=== PATIENT | male | born 1965 | race Caucasian/White ===

== ENCOUNTER 2017-01-07 22:38 | Emergency (ER) | payer OTHER ==
[~2017-01-07] VITALS: Ht 180.3 cm; Wt 122.5 kg
[2017-01-07 23:21] VITALS: BP 159/93
[2017-01-08] MEDS ORDERED: AMOX1TAB61 PO (00:05)
--- NOTE | 2017-01-08 00:07 | PHYS DOC ---
Past Medical History Past Medical History: GERD, IBS Additional Past Medical Histor: DDD Past Surgical History: Tonsillectomy Additional Past Surgical Histo: LEFT KNEE SX, LEFT SHOULDER SX Alcohol Use: Occasionally Drug Use: None Adult General Chief Complaint Chief Complaint: COUGH HPI HPI Patient is a 51 year old male resents to the emergency department stating that he has had a one-month history of cough and congestion with sinus pressure. He states he's been taking NyQuil and Mucinex to help with the drainage and discomfort. He states in the morning he does have a productive cough. He states however during the day he just has a regular cough. He states that he has coughed so much at one time. He had passed out after coughing so much. Patient states that he just returned from [place] at 10:00 tonight. He came straight to the emergency department to the symptoms lasting so long. He denies any current fevers or chills. Review of Systems Review of Systems Constitutional: Denies fever or chills [] Eyes: Denies change in visual acuity, redness, or eye pain [] HENT: nasal congestion denies sore throat [] Respiratory: cough and shortness of air Cardiovascular: No additional information not addressed in HPI [] GI: Denies abdominal pain, nausea, vomiting, bloody stools or diarrhea [] : Denies dysuria or hematuria [] Musculoskeletal: Denies back pain or joint pain [] Integument: Denies rash or skin lesions [] Neurologic: Denies headache, focal weakness or sensory changes [] Endocrine: Denies polyuria or polydipsia [] All other systems were reviewed and found to be within normal limits, except as documented in this note. Allergies Allergies Allergies Coded Allergies Type Severity Reaction Last Updated Verified No Known Drug Allergies 01/07/17 No Physical Exam Physical Exam Constitutional: Well developed, well nourished, no acute distress, non-toxic appearance. [] HENT: Normocephalic, atraumatic, bilateral external ears normal, oropharynx moist, no oral exudates, nose normal. Bilateral tympanic membranes appear to be normal. Patient with erythematous noted in the throat with postnasal drip noted. Eyes: PERRLA, EOMI, conjunctiva normal, no discharge. [] Neck: Normal range of motion, no tenderness, supple, no stridor. [] Cardiovascular:Heart rate regular rhythm, no murmur [] Lungs & Thorax: Bilateral breath sounds clear to auscultation [] Skin: Warm, dry, no erythema, no rash. [] Extremities: No tenderness, no cyanosis, no clubbing, ROM intact, no edema. [] Neurologic: Alert and oriented X 3, normal motor function, normal sensory function, no focal deficits noted. [] Psychologic: Affect normal, judgement normal, mood normal. [] Current Patient Data Vital Signs Vital Signs Date Time Temp Pulse Resp B/P (MAP) Pulse Ox O2 Delivery O2 Flow Rate FiO2 01/07/17 23:21 98.0 68 18 98 Room Air 98.0 EKG EKG [] Radiology/Procedures Radiology/Procedures [] Course & Med Decision Making Course & Med Decision Making Pertinent Labs and Imaging studies reviewed. (See chart for details) Spoke with patient in regards to placing him on antibiotics with recommendation for Mucinex DM and Sudafed chcc-dmi-selensd. Also recommended prednisone and an albuterol inhaler. Spoke with patient in regards to not performing a chest x- ray as he has been placed on Augmentin comfort pneumonias. Patient agrees with discharge instructions, treatment regimens and follow-up recommendations. Signs and symptoms return back to the emergency department has been provided. All questions and concerns have been answered. I've spoken with the patient and/or caregivers. I've explained the patient's condition, diagnosis and treatment plan based on information available to me at this time. I've answered the patient's and/or caregivers questions and addressed any concerns. The patient and/or caregivers have a good understanding the patient's diagnosis, condition and treatment plan as can be expected at this point. Vital signs have been stabilized. The patient's condition is stable for discharge from the emergency department. The patient will pursue further outpatient evaluation with her primary care provider or other designated consulting physician as outlined in the discharge instructions. Patient and/or caregivers are agreeable to this plan of care and follow-up instructions have been explained in detail. The patient and/or caregivers have received these instructions in written format and expressed understanding of these discharge instructions. The patient and her caregivers are aware that if any significant change in condition or worsening of symptoms should prompt him to immediately return to this of the closest emergency department. If an emergent department is not readily available I would encourage him to call 911. Lambert Disclaimer Lambert Disclaimer This electronic medical record was generated, in whole or in part, using a voice recognition dictation system. Departure Departure Impression: Primary Impression: Sinusitis Disposition: 01 HOME, SELF-CARE Condition: STABLE Referrals: UNKNOWN PCP NAME (PCP) Patient Instructions: Sinusitis, [id number] Additional Instructions: Activity as tolerated Tylenol or ibuprofen for fever chills or generalized body aches and discomfort. Sudafed and Mucinex DM as directed by manufacture [id number]. Antibiotics as prescribed. Drink plenty of fluids Follow-up with your care physician in the next 5-7 days. Return back to the emergency department as needed for signs and symptoms that become worse. Scripts Amoxicillin/Potassium Clav (AUGMENTIN 875-125 TABLET) 1 Each Tablet 1 TAB PO BID, #20 TAB Prov: DAIVD BRIGGS APRN 01/08/17 Problem Qualifiers Primary Impression: Sinusitis Sinusitis location: unspecified location Chronicity: unspecified Qualified Codes: J32.9 - Chronic sinusitis, unspecified DAVID BRIGGS PRIMARY HEALTH ORGANISATION MANAGER Jan 08, 2017 00:07
[2017-01-08] MEDS ORDERED: guaiFENesin DM 600/30MG 1 TAB TAB.ER.12H PO ONE (00:15)
[2017-01-08] MEDS ORDERED: PSEUDOEPHEDRINE ER 120 MG TABLET.ER. PO ONE (00:15)
[2017-01-08] MEDS ORDERED: AMOXICILLIN/K CLAV 875/125MG TABLET. PO ONE (00:15)
[2017-01-08] MEDS ORDERED: PRED20TA PO (00:19)
[2017-01-08] MEDS ORDERED: PROAIR HFA8.5 GM INH (00:20)
== END 2017-01-08 00:14 | disposition home or self-care (01) ==
LOC: ER 22:38
DX: J32.9 Chronic sinusitis, unspecified (principal); K21.9 Gastro-esophageal reflux disease without esophagitis; K58.9 Irritable bowel syndrome, unspecified
CPT/HCPCS: 99284

== ENCOUNTER 2018-04-15 22:58 | Emergency (ER) | payer OTHER ==
[~2018-04-15] VITALS: Ht 180.3 cm; Wt 127.0 kg
[~2018-04-15 22:58] MED LIST: ALBU2.5V8 INH; AMOX1TAB61 PO; PRED20TA PO
--- NOTE | 2018-04-15 23:12 | PHYS DOC ---
Past Medical History Past Medical History: GERD, IBS Additional Past Medical Histor: DDD Past Surgical History: Tonsillectomy Additional Past Surgical Histo: LEFT KNEE SX, LEFT SHOULDER SX Alcohol Use: Occasionally Drug Use: None Adult General Chief Complaint Chief Complaint: FLU SYMPTOM HPI HPI Patient is a 52-year-old male who presents with complaint of productive cough and purulent nasal drainage for the last week and a half. He denies any fever. He states that getting to the point now where he feels like he is not able to get adequate breath. He reports that he was initially having a lot of sinus pain and pressure especially in the maxillary sinuses but states that since they 've been draining his pain has been much less. He denies any nausea or vomiting. Patient states that coughing is worse in the cold air. Review of Systems Review of Systems Constitutional: Denies fever or chills [] HENT: Positive sinus congestion and purulent nasal drainage[] Respiratory: Positive productive cough without shortness of breath [] Cardiovascular: No additional information not addressed in HPI [] GI: Denies abdominal pain, nausea, vomiting or diarrhea [] Current Medications Current Medications Current Medications Medications (Trade) Dose Ordered Sig/Leanne Start Time Stop Time Status Last Admin Dose Admin Clonidine HCl (Catapres) 0.2 mg 1X ONCE 04/15/18 23:15 04/15/18 23:16 DC 04/15/18 23:15 0.2 MG Allergies Allergies Allergies Coded Allergies Type Severity Reaction Last Updated Verified No Known Drug Allergies 01/07/17 No Physical Exam Physical Exam Constitutional: Well developed, well nourished, no acute distress, non-toxic appearance. [] HENT: Normocephalic, atraumatic, bilateral external ears normal, oropharynx moist, no oral exudates, nose normal. [] Cardiovascular: Regular rate and rhythm[] Lungs & Thorax: Fine rhonchi are noted in the lung bases[] Extremities: No tenderness, no cyanosis, no clubbing, ROM intact, no edema. [] Neurologic: Alert and oriented X 3, no focal deficits noted. [] Current Patient Data Vital Signs Vital Signs Date Time Temp Pulse Resp B/P (MAP) Pulse Ox O2 Delivery O2 Flow Rate FiO2 04/15/18 23:15 70 223/106 04/15/18 23:00 98.1 20 97 Room Air 98.1 EKG EKG [] Radiology/Procedures Radiology/Procedures [] Impressions: PROCEDURE: CHEST PA & LATERAL EXAM: PA and Lateral Views of the Chest DATE: 04/15/2018 11:14 PM INDICATION: cough COMPARISON: No Prior FINDINGS: The heart is not enlarged. Mediastinal and hilar contours are normal. No focal parenchymal airspace opacity. Right upper lobe calcified granuloma. No pleural effusion or pneumothorax. IMPRESSION: 1. No radiographic evidence for acute cardiopulmonary process. Electronically signed by: Figueroa Hernandez MD (04/15/2018 11:44 PM) [facility] Course & Med Decision Making Course & Med Decision Making Pertinent Labs and Imaging studies reviewed. (See chart for details) [] Dragon Disclaimer Dragon Disclaimer This electronic medical record was generated, in whole or in part, using a voice recognition dictation system. Departure Departure Impression: Primary Impression: Acute bronchitis Disposition: 01 HOME, SELF-CARE Condition: STABLE Referrals: UNKNOWN PCP NAME (PCP) Patient Instructions: Acute Bronchitis Scripts Guaifenesin/Codeine Phosphate (CHERATUSSIN AC SYRUP) 118 Ml Liquid 5 ML PO PRN Q6HRS PRN for COUGH, #120 ML Prov: JIMMY MANDUJANO Jr. DO 04/16/18 Amoxicillin/Potassium Clav (AUGMENTIN 875-125 TABLET) 1 Each Tablet 1 TAB PO BID, #20 TAB Prov: JIMMY MANDUJANO Jr. DO 04/16/18 Problem Qualifiers Primary Impression: Acute bronchitis Bronchitis organism: unspecified organism Qualified Codes: J20.9 - Acute bronchitis, unspecified JIMMY MANDUJANO Jr. DO Apr 15, 2018 23:12
[2018-04-15] MEDS ORDERED: cloNIDine HCL 0.1 MG TABLET PO ONE (23:15)
--- NOTE | 2018-04-15 23:47 | RAD ---
EXAM: PA and Lateral Views of the Chest DATE: 04/15/2018 11:14 PM INDICATION: cough COMPARISON: No Prior FINDINGS: The heart is not enlarged. Mediastinal and hilar contours are normal. No focal parenchymal airspace opacity. Right upper lobe calcified granuloma. No pleural effusion or pneumothorax. IMPRESSION: 1. No radiographic evidence for acute cardiopulmonary process. Electronically signed by: Figueroa Hernandez MD (04/15/2018 11:44 PM) [id number]
[2018-04-16] MEDS ORDERED: AMOX1TAB61 PO (00:10)
[2018-04-16] MEDS ORDERED: GUAI118L20 PO (00:10)
[2018-04-16] MEDS ORDERED: AMOXICILLIN/K CLAV 875/125MG TABLET. PO ONE (00:15)
[2018-04-16 00:31] VITALS: BP 160/90
== END 2018-04-16 00:34 | disposition home or self-care (01) ==
LOC: ER 22:58
DX: J20.9 Acute bronchitis, unspecified (principal); K21.9 Gastro-esophageal reflux disease without esophagitis; Z90.89 Acquired absence of other organs
CPT/HCPCS: 71046; 99283

== ENCOUNTER 2019-02-06 08:50 | Emergency (ER) | payer OTHER ==
[~2019-02-06] VITALS: Ht 182.9 cm; Wt 129.3 kg
[~2019-02-06 08:50] MED LIST changes: +GUAI118L20 PO
[2019-02-06] MEDS ORDERED: hydrALAZINE 20 MG/ML VIAL. IVP ONE ×2 (09:15→11:00)
--- NOTE | 2019-02-06 09:32 | PHYS DOC ---
Past Medical History Past Medical History: GERD, IBS, Sinusitis, Other Additional Past Medical Histor: DDD Past Surgical History: Tonsillectomy, Other Additional Past Surgical Histo: LEFT KNEE/SHOULDER Alcohol Use: Occasionally Drug Use: None Adult General Chief Complaint Chief Complaint: HYPERTENSION HPI HPI Patient is a 53 year old male patient with history of IBS and degenerative joint disease who presents with complaint of high blood pressure. Patient states he has had nasal congestion and sinus pressure symptom and treated bdil-amf-[id number] medication without improvement and was seen at urgent care yesterday and had blood pressure of 170s over 110 and was advised to come to emergency room. Patient states he purchased a blood pressure machine and check his blood pressure last night and this morning dentist was 170s over 1:15 and decided to come to ER. Patient denies headache, blurred vision, chest pain, shortness of breath, focal neuro deficit, history of hypertension or family history of hypertension. Patient had blood pressure of 223/133 at arrival to ER. Review of Systems Review of Systems Constitutional: Denies fever or chills [] Eyes: Denies change in visual acuity, redness, or eye pain [] HENT: Reports nasal congestion and sinus pressure Respiratory: Denies cough or shortness of breath [] Cardiovascular: No additional information not addressed in HPI [] GI: Denies abdominal pain, nausea, vomiting, bloody stools or diarrhea [] : Denies dysuria or hematuria [] Musculoskeletal: Denies back pain or joint pain [] Integument: Denies rash or skin lesions [] Neurologic: Denies headache, focal weakness or sensory changes [] Endocrine: Denies polyuria or polydipsia [] All other systems were reviewed and found to be within normal limits, except as documented in this note. Current Medications Current Medications Current Medications Medications (Trade) Dose Ordered Sig/Leanne Start Time Stop Time Status Last Admin Dose Admin Hydralazine HCl (Apresoline Inj) 10 mg 1X ONCE 02/06/19 11:00 02/06/19 11:01 DC 02/06/19 11:01 10 MG Lisinopril (Prinivil) 20 mg 1X ONCE 02/06/19 11:30 02/06/19 11:33 DC 02/06/19 11:42 20 MG Allergies Allergies Allergies Coded Allergies Type Severity Reaction Last Updated Verified No Known Drug Allergies 01/07/17 No Physical Exam Physical Exam Constitutional: Well developed, well nourished, no distress, non-toxic appearance. [] HENT: Normocephalic, atraumatic. Eyes: PERRLA, EOMI, conjunctiva normal, no discharge. [] Neck: Normal range of motion, no tenderness, supple, no stridor. [] Cardiovascular:Heart rate regular rhythm, no murmur [] Lungs & Thorax: Bilateral breath sounds clear to auscultation [] Abdomen: Bowel sounds normal, soft, no tenderness, no masses, no pulsatile masses. [] Skin: Warm, dry, no erythema, no rash. [] Back: No tenderness, no CVA tenderness. [] Extremities: No tenderness, no cyanosis, no clubbing, ROM intact, no edema. [] Neurologic: Alert and oriented X 3, no focal deficits noted. [] Psychologic: Affect normal, judgement normal, mood normal. [] Current Patient Data Vital Signs Vital Signs Date Time Temp Pulse Resp B/P (MAP) Pulse Ox O2 Delivery O2 Flow Rate FiO2 02/06/19 11:42 83 205/107 02/06/19 11:41 18 98 Room Air 02/06/19 08:55 97.7 97.7 Lab Values Laboratory Tests Test 02/06/19 09:29 White Blood Count 6.6 x10^3/uL (4.0-11.0) Red Blood Count 5.16 x10^6/uL (4.30-5.70) Hemoglobin 15.8 g/dL (13.0-17.5) Hematocrit 45.2 % (39.0-53.0) Mean Corpuscular Volume 87 fL (79-100) Mean Corpuscular Hemoglobin 31 pg (25-35) Mean Corpuscular Hemoglobin Concent 35 g/dL (31-37) Red Cell Distribution Width 12.4 % (11.5-14.5) Platelet Count 296 x10^3/uL (140-400) Neutrophils (%) (Auto) 61 % (31-73) Lymphocytes (%) (Auto) 30 % (24-48) Monocytes (%) (Auto) 7 % (0-9) Eosinophils (%) (Auto) 2 % (0-3) Basophils (%) (Auto) 1 % (0-3) Neutrophils # (Auto) 4.0 x10^3/uL (1.8-7.7) Lymphocytes # (Auto) 2.0 x10^3/uL (1.0-4.8) Monocytes # (Auto) 0.5 x10^3/uL (0.0-1.1) Eosinophils # (Auto) 0.1 x10^3/uL (0.0-0.7) Basophils # (Auto) 0.1 x10^3/uL (0.0-0.2) Prothrombin Time 12.3 SEC (11.7-14.0) Prothrombin Time INR 0.9 (0.8-1.1) Sodium Level 140 mmol/L (136-145) Potassium Level 4.2 mmol/L (3.5-5.1) Chloride Level 104 mmol/L (98-107) Carbon Dioxide Level 26 mmol/L (21-32) Anion Gap 10 (6-14) Blood Urea Nitrogen 13 mg/dL (8-26) Creatinine 1.2 mg/dL (0.7-1.3) Estimated GFR (Cockcroft-Gault) 63.3 BUN/Creatinine Ratio 11 (6-20) Glucose Level 121 mg/dL (70-99) H Calcium Level 9.0 mg/dL (8.5-10.1) Magnesium Level 1.9 mg/dL (1.8-2.4) Total Bilirubin 0.4 mg/dL (0.2-1.0) Aspartate Amino Transferase (AST) 19 U/L (15-37) Alanine Aminotransferase (ALT) 26 U/L (16-63) Alkaline Phosphatase 46 U/L (46-116) Creatine Kinase 89 U/L (39-308) Troponin I Quantitative < 0.017 ng/mL (0.000-0.055) SX-Rot-K-Type Natriuretic Peptide 98 pg/mL (0-124) Total Protein 7.2 g/dL (6.4-8.2) Albumin 3.6 g/dL (3.4-5.0) Albumin/Globulin Ratio 1.0 (1.0-1.7) Laboratory Tests 02/06/19 09:29 Laboratory Tests 02/06/19 09:29 EKG EKG EKG interpreted by me. EKG at 0 924 showed normal sinus rhythm at rate of 66, left leung axis, normal DC and QT intervals, no acute ST and T-wave elevation. Radiology/Procedures Radiology/Procedures [][facility] [address] [place] [address] IMAGING REPORT Signed PATIENT: FLOWER THOMPSON ACCOUNT: [id number] : 1965 LOCATION: ER AGE: 53 SEX: M EXAM STATUS: PRE ER ORD. PHYSICIAN: MARISSA POTTS MD REASON: hypertension PROCEDURE: CHEST PA & LATERAL EXAM: Chest, 2 views. HISTORY: Hypertension. COMPARISON: 04/15/2018 FINDINGS: 2 views of the chest are obtained. There is no infiltrate, pleural effusion or pneumothorax. The heart is normal in size. There is a calcified granuloma within the right upper lobe. IMPRESSION: No acute pulmonary finding. Electronically signed by: Eri Deal MD (02/06/2019 9:48 AM) [facility] DICTATED and SIGNED BY: ERI DEAL MD DATE: 02/06/1948 Course & Med Decision Making Course & Med Decision Making Pertinent Labs and Imaging studies reviewed. (See chart for details) Evaluation of patient in ER showed 52-year-old male patient without history of hypertension presented to ER with blood pressure of blood and 200. Patient had blood pressure of 213/133 at arrival to ER and treated with hydralazine 10 mg IV 2 and blood pressure gradually decreased to 180s over 90s. Patient had unremarkable labs. Patient refused hospitalization and wanted to follow-up with primary care physician as outpatient. 20 Milligram of lisinopril by mouth was given in ER and lisinopril 10 mg daily was given. Patient was advised to recheck the blood pressure and follow up with primary care physician and return to ER as needed. Dragon Disclaimer Dragon Disclaimer This electronic medical record was generated, in whole or in part, using a voice recognition dictation system. Departure Departure Impression: Primary Impression: Accelerated hypertension Disposition: HOME, SELF-CARE (at 11:30) Condition: IMPROVED Referrals: UNKNOWN PCP NAME (PCP) Patient Instructions: Form - Blood Pressure Record Sheet, How to Take Your Blood Pressure, [id number], Hypertension, Managing Your High Blood Pressure Additional Instructions: Record her blood pressure Follow-up with your primary care physician in 2-3 days Return to ER if not getting better Thank you for visiting [facility]. We appreciate you trusting us with your care. If any additional problems come up don't hesitate to return to visit us. Please follow up with your primary care provider so they can plan additional care if needed and know about the problem that you had. If symptoms worsen come back to the Emergency Department. Any concerning symptoms that start such as chest pain, shortness of air, weakness or numbness on one side of the body, running high fevers or any other concerning symptoms return to the ER. Scripts Lisinopril (LISINOPRIL) 10 Mg Tablet 1 TAB PO DAILY, #30 TAB 0 Refills Prov: MARISSA POTTS MD 02/06/19 MARISSA POTTS MD Feb 06, 2019 09:32
[2019-02-06 09:46] LABS: BASO # 0.1 x10^3/uL (0.0-0.2); BASO % 1 % (0-3); EOS # 0.1 x10^3/uL (0.0-0.7); EOS % 2 % (0-3); HEMATOCRIT 45.2 % (39.0-53.0); HEMOGLOBIN 15.8 g/dL (13.0-17.5); LYMPH % 30 % (24-48); MEAN CORPUSCULAR HEMOGLOBIN 31 pg (25-35); MEAN CORPUSCULAR HGB CONC 35 g/dL (31-37); MEAN CORPUSCULAR VOLUME 87 fL (79-100); MONO # 0.5 x10^3/uL (0.0-1.1); MONO % 7 % (0-9); NEUT % 61 % (31-73); PLATELET COUNT 296 x10^3/uL (140-400); RED BLOOD COUNT 5.16 x10^6/uL (4.30-5.70); RED CELL DISTRIBUTION WIDTH 12.4 % (11.5-14.5); WHITE BLOOD COUNT 6.6 x10^3/uL (4.0-11.0)
--- NOTE | 2019-02-06 09:51 | RAD ---
EXAM: Chest, 2 views. HISTORY: Hypertension. COMPARISON: 04/15/2018 FINDINGS: 2 views of the chest are obtained. There is no infiltrate, pleural effusion or pneumothorax. The heart is normal in size. There is a calcified granuloma within the right upper lobe. IMPRESSION: No acute pulmonary finding. Electronically signed by: Eri Vigil MD (02/06/2019 9:48 AM) [facility]
[2019-02-06 09:52] LABS: CREATININE 1.2 mg/dL (0.7-1.3); GFR 63.3; POTASSIUM 4.2 mmol/L (3.5-5.1)
[2019-02-06 09:59] LABS: ALBUMIN 3.6 g/dL (3.4-5.0); MAGNESIUM 1.9 mg/dL (1.8-2.4); TOTAL BILIRUBIN 0.4 mg/dL (0.2-1.0); TOTAL PROTEIN 7.2 g/dL (6.4-8.2)
[2019-02-06 10:00] LABS: PROTHROMBIN TIME PATIENT 12.3 SEC (11.7-14.0)
--- NOTE | 2019-02-06 11:15 | EKG ---
[facility] [address] [place] [address] Test Date: 2019-02-06 Test Time: 09:24:04 Pat Name: FLOWER JUAREZLEVON Department: Room: Gender: [employer] Sales Representative: Lizzie : 1965 Requested By: MARISSA POTTS Order Number: [id number] Reading MD: Measurements Intervals [place] Rate: 66 P: 24 IA: 142 QRS: -9 QRSD: 88 T: 3 QT: 382 QTc: 402 Interpretive Statements SINUS RHYTHM LEFTWARD AXIS NO SPECIFIC ECG ABNORMALITIES RI6.01 No previous ECG available for comparison
[2019-02-06] MEDS ORDERED: LISINOPRIL 10 MG TABLET PO ONE (11:30)
[2019-02-06] MEDS ORDERED: LISI10TA2 PO (11:38)
[2019-02-06 11:42] VITALS: BP 205/107
== END 2019-02-06 11:53 | disposition home or self-care (01) ==
LOC: ER 08:50
DX: I10 Essential (primary) hypertension (principal); K21.9 Gastro-esophageal reflux disease without esophagitis; K58.9 Irritable bowel syndrome, unspecified
CPT/HCPCS: 36415; 71046; 80053; 82550; 83735; 83880; 84484; 85025; 85610; 93005; 96374; 96376; 99285; J0360

== ENCOUNTER 2019-02-07 21:28 | Emergency (ER) | payer OTHER ==
[~2019-02-07] VITALS: Ht 180.3 cm; Wt 129.3 kg
[~2019-02-07 21:28] MED LIST changes: +LISI10TA2 PO
--- NOTE | 2019-02-07 22:00 | PHYS DOC ---
Past Medical History Past Medical History: GERD, IBS, Sinusitis, Other Additional Past Medical Histor: DDD Past Surgical History: Tonsillectomy, Other Additional Past Surgical Histo: LEFT KNEE/SHOULDER Alcohol Use: Occasionally Drug Use: None Adult General Chief Complaint Chief Complaint: HEADACHE HPI HPI Patient is a 53-year-old male with a recent diagnosis of hypertension who is started on lisinopril. He is checked his blood pressure multiple times today and it's been in the 170/100 range and he is concerned. He also states he has a lit tle bit of a headache. He denies any lateralizing neurologic weakness. He states the headache is throbbing in nature. He denies any nausea or vomiting. Denies any neck pain. He does admit that he and his have both been very worried about the diagnosis of hypertension.[] Review of Systems Review of Systems Constitutional: Denies fever or chills [] Eyes: Denies change in visual acuity, redness, or eye pain [] HENT: Denies nasal congestion or sore throat [] Respiratory: Denies cough or shortness of breath [] Cardiovascular: No additional information not addressed in HPI [] GI: Denies abdominal pain, nausea, vomiting, bloody stools or diarrhea [] : Denies dysuria or hematuria [] Musculoskeletal: Denies back pain or joint pain [] Integument: Denies rash or skin lesions [] Neurologic: Per history of present illness[] Endocrine: Denies polyuria or polydipsia [] All other systems were reviewed and found to be within normal limits, except as documented in this note. Current Medications Current Medications Current Medications Medications (Trade) Dose Ordered Sig/Leanne Start Time Stop Time Status Last Admin Dose Admin Acetaminophen/ Butalbital/ Caffeine (Fioricet) 1 tab 1X ONCE 02/07/19 22:30 02/07/19 22:31 DC 02/07/19 22:06 1 TAB Allergies Allergies Allergies Coded Allergies Type Severity Reaction Last Updated Verified No Known Drug Allergies 01/07/17 No Physical Exam Physical Exam Constitutional: Well developed, well nourished, no acute distress, non-toxic appearance. [] HENT: Normocephalic, atraumatic, bilateral external ears normal, oropharynx moist, no oral exudates, nose normal. [] Eyes: PERRLA, EOMI, conjunctiva normal, no discharge. [] Neck: Normal range of motion, no tenderness, supple, no stridor. [] Cardiovascular:Heart rate regular rhythm, no murmur [] Lungs & Thorax: Bilateral breath sounds clear to auscultation [] Abdomen: Bowel sounds normal, soft, no tenderness, no masses, no pulsatile masses. [] Skin: Warm, dry, no erythema, no rash. [] Back: No tenderness, no CVA tenderness. [] Extremities: No tenderness, no cyanosis, no clubbing, ROM intact, no edema. [] Neurologic: Alert and oriented X 3, normal motor function, normal sensory function, no focal deficits noted. [] Psychologic: Affect normal, judgement normal, mood normal. [] Current Patient Data Vital Signs Vital Signs Date Time Temp Pulse Resp B/P (MAP) Pulse Ox O2 Delivery O2 Flow Rate FiO2 02/07/19 22:20 66 20 96 02/07/19 21:40 97.8 202/107 (138) Room Air 97.8 EKG EKG [] Radiology/Procedures Radiology/Procedures [] Course & Med Decision Making Course & Med Decision Making Pertinent Labs and Imaging studies reviewed. (See chart for details) [ED course: Evaluation reveals a 53-year-old male in no distress with an elevated blood pressure. I had a long conversation with both him and his about appropriate ways to take and check blood pressure. Patient seems to understand. He is safe for discharge home at this time. He was given a Fioricet for headache.] Dragon Disclaimer Dragon Disclaimer This electronic medical record was generated, in whole or in part, using a voice recognition dictation system. Departure Departure Impression: Primary Impression: Headache Additional Impression: Hypertension Disposition: 01 HOME, SELF-CARE Condition: STABLE Referrals: UNKNOWN PCP NAME (PCP) Patient Instructions: General Headache Without Cause, Hypertension Additional Instructions: Return to the emergency department with any new or concerning symptoms Problem Qualifiers Primary Impression: Headache Headache type: tension-type Headache chronicity pattern: acute headache Intractability: not intractable Qualified Codes: G44.209 - Tension-type headache, unspecified, not intractable Additional Impression: Hypertension Hypertension type: essential hypertension Qualified Codes: I10 - Essential (primary) hypertension KAREN RUIZ DO Feb 07, 2019 22:00
[2019-02-07 22:20] VITALS: BP 221/107
[2019-02-07] MEDS ORDERED: BUTALB/APAP/CAFEIN 50/325/40MG TABLET. PO ONE (22:30)
== END 2019-02-07 22:35 | disposition home or self-care (01) ==
LOC: ER 21:28
DX: G44.209 Tension-type headache, unspecified, not intractable (principal); I10 Essential (primary) hypertension; K21.9 Gastro-esophageal reflux disease without esophagitis; K58.9 Irritable bowel syndrome, unspecified
CPT/HCPCS: 99283